=== PATIENT | male | born 1950 ===

== ENCOUNTER 2023-06-02 05:45 | Day surgery (SDC) | payer OTHER ==
[2023-06-02] MEDS ORDERED: BACITRACIN 28.35 GM OINT.TUBE TOP ONE ×2 (07:14→08:15)
[2023-06-02] MEDS ORDERED: BUPIVACAINE HCL/PF 0.5% 30ML ML ONE (07:14)
[2023-06-02] MEDS ORDERED: TRIAMCINOLONE ACETONIDE 40 MG/ML VIAL ONE (07:16)
[2023-06-02] MEDS ORDERED: CEFAZOLIN SODIUM 1,000 MG VIAL ONE (07:28)
[2023-06-02] MEDS ORDERED: ISOPROPYL ALCOHOL 30 ML OUNCE TOP ONE (08:15)
[2023-06-02] MEDS ORDERED: CEFAZOLIN SODIUM 1,000 MG VIAL IV ONE (08:15)
[2023-06-02] MEDS ORDERED: BUPIVACAINE HCL 30 ML VIAL IJ ONE (08:15)
== END 2023-06-02 11:00 | disposition home or self-care (01) ==
LOC: CIR.AMB 05:45
PROVIDERS: ATTEND Surgery Surgery of the Hand
DX: M72.0 Palmar fascial fibromatosis [Dupuytren] (principal); Z20.822 Contact with and (suspected) exposure to COVID-19